=== PATIENT | female | born 1945 | race Caucasian/White ===

== ENCOUNTER 2016-10-01 05:30 | Inpatient (IN) | payer OTHER, MEDICARE ==
[~2016-10-01] VITALS: Ht 162.6 cm; Wt 138.8 kg
[~2016-10-01 05:30] MED LIST: ACTOS TAB 15MG15 MG PO; ASPIRIN 325MG325 MG PO; GLUCOTROL 10 MG10 MG PO; IBUPROFEN200 MG PO; IBUPROFEN800 MG PO; LACTULOSE10 GM/151 PO; LEVOTHYROXINE125 MCG PO; METFORMIN HCL500 M1 PO; MOTRIN IB200 MG PO; PRILOSEC OTC20 MG PO; TOPROL XL 50 MG50 MG PO
[2016-10-02 06:13] LABS: HEMOGLOBIN 10.7 gm/dl (12.3-15.3); RED BLOOD COUNT 3.47 M/UL (4.00-5.10); WHITE BLOOD COUNT 8.9 K/UL (4.5-11.0)
[2016-10-02 06:39] LABS: BUN/CREATININE RATIO 26 (0-10)
[2016-10-05 06:42] LABS: BUN/CREATININE RATIO 32 (0-10)
== END 2016-10-05 17:00 | DRG 493 ==
LOC: ZOBSOF 05:30 → EDSTATUS 08:15 → OR 08:15 → M/S 13:07
PROVIDERS: ADMIT Orthopaedic Surgery
PROC: 0SGF04Z Fusion of Right Ankle Joint with Internal Fixation Device, Open Approach (ICD-10-PCS; principal; 2016-10-01 08:15)
PROC: 0SPF04Z Removal of Internal Fixation Device from Right Ankle Joint, Open Approach (ICD-10-PCS; principal; 2016-10-01 08:15)
DX: S82.51XA Displaced fracture of medial malleolus of right tibia, initial encounter for closed fracture (principal); T84.228A Displacement of internal fixation device of other bones, initial encounter; Z68.43 Body mass index [BMI] 50.0-59.9, adult; X50.0XXA Overexertion from strenuous movement or load, initial encounter; E66.01 Morbid (severe) obesity due to excess calories; G62.9 Polyneuropathy, unspecified; R11.0 Nausea; R53.1 Weakness; E78.5 Hyperlipidemia, unspecified; I10 Essential (primary) hypertension; E11.9 Type 2 diabetes mellitus without complications; E03.9 Hypothyroidism, unspecified; K21.9 Gastro-esophageal reflux disease without esophagitis; Z98.890 Other specified postprocedural states; M19.071 Primary osteoarthritis, right ankle and foot; Z90.710 Acquired absence of both cervix and uterus; Z98.41 Cataract extraction status, right eye; Z88.5 Allergy status to narcotic agent; Z79.82 Long term (current) use of aspirin; Z79.899 Other long term (current) drug therapy; Z79.1 Long term (current) use of non-steroidal anti-inflammatories (NSAID); Z79.84 Long term (current) use of oral hypoglycemic drugs; F17.290 Nicotine dependence, other tobacco product, uncomplicated; Z82.49 Family history of ischemic heart disease and other diseases of the circulatory system; Z83.3 Family history of diabetes mellitus; Y93.01 Activity, walking, marching and hiking; Y92.9 Unspecified place or not applicable
CPT/HCPCS: 36415; 73610; 76000; 80048; 82962; 84443; 85025; 97110; 97530; C1713; C1769; J0690; J1650; J2250; J2270; J2405; J2710; J2795; J3010; J3370; J7030; J7120